=== PATIENT | female | born 1985 | race Two or more races ===

== ENCOUNTER 2022-04-29 09:49 | Outpatient (CLI) | payer OTHER | END 2022-04-29 11:28 | disposition home or self-care (01) | LOC: PRENATAL 09:49 | PROVIDERS: ATTEND Obstetrics & Gynecology Maternal & Fetal Medicine | DX: O26.849 Uterine size-date discrepancy, unspecified trimester (principal); O09.529 Supervision of elderly multigravida, unspecified trimester; Z3A.31 31 weeks gestation of pregnancy ==

== ENCOUNTER 2022-05-27 10:37 | Outpatient (CLI) | payer OTHER | END 2022-05-27 11:53 | disposition home or self-care (01) | LOC: PRENATAL 10:37 | PROVIDERS: ATTEND Obstetrics & Gynecology Maternal & Fetal Medicine | DX: O26.849 Uterine size-date discrepancy, unspecified trimester (principal); O09.529 Supervision of elderly multigravida, unspecified trimester; O36.8199 Decreased fetal movements, unspecified trimester, other fetus; O09.219 Supervision of pregnancy with history of pre-term labor, unspecified trimester; Z3A.35 35 weeks gestation of pregnancy ==

== ENCOUNTER 2022-06-20 12:00 | Inpatient (IN) | payer OTHER ==
[~2022-06-20] VITALS: Ht 165.1 cm; Wt 113.4 kg
[~2022-06-20 12:00] MED LIST: ADULT LOW DOSE81 M1 PO; FOLIC ACID20 MG PO; PRENATAL TABLE1 EAC1 PO
[2022-06-23] MEDS ORDERED: PANTOPRAZOLE SO40 MG (08:43)
[2022-06-23] MEDS ORDERED: PROGESTERONE200 MG (08:43)
[2022-06-23] MEDS ORDERED: LABETALOL HCL100 MG (08:43)
[2022-06-23] MEDS ORDERED: PRENATAL MULTI1 EAC3 (08:43)
[2022-06-23] MEDS ORDERED: PROVENTIL HFA6.7 GM (08:43)
[2022-06-23] MEDS ORDERED: FLONASE16 GM (08:44)
== END 2022-06-25 14:07 | disposition home or self-care (01) | DRG 785 ==
LOC: O/R 06-22 06:33 → OB/GYN 06-22 06:33
PROVIDERS: ADMIT Obstetrics & Gynecology; ATTEND Obstetrics & Gynecology
PROC: 0UB70ZZ Excision of Bilateral Fallopian Tubes, Open Approach (ICD-10-PCS; 2022-06-22)
PROC: 4A1HXCZ Monitoring of Products of Conception, Cardiac Rate, External Approach (ICD-10-PCS; 2022-06-22)
PROC: 10D00Z1 Extraction of Products of Conception, Low, Open Approach (ICD-10-PCS; principal; 2022-06-22 07:00)
DX: O34.211 Maternal care for low transverse scar from previous cesarean delivery (principal); O24.420 Gestational diabetes mellitus in childbirth, diet controlled; O16.4 Unspecified maternal hypertension, complicating childbirth; Z3A.39 39 weeks gestation of pregnancy; Z37.0 Single live birth; Z20.822 Contact with and (suspected) exposure to COVID-19; Z30.2 Encounter for sterilization